=== PATIENT | male | born 2000 | race Caucasian/White ===

== ENCOUNTER 2023-07-14 16:10 | Emergency (ER) | payer BC ==
[2023-07-14] MEDS: Alum Hydro/Mag Hydro/Simeth XS 15 ML, Lidocaine 2% 5 ML PO ONE (17:29)
== END 2023-07-14 18:16 | disposition home or self-care (01) ==
LOC: MW.ED 16:10
DX: R07.0 Pain in throat (principal); Z75.8 Other problems related to medical facilities and other health care; Z79.899 Other long term (current) drug therapy
CPT/HCPCS: 87651; 99283; A9270

== ENCOUNTER 2023-12-18 02:42 | Emergency (ER) | payer OTHER, BC ==
[2023-12-18] MEDS: Morphine 4 MG/ML Syringe IVPUSH ONE (02:49)
[2023-12-18] MEDS: Lidocaine 1% 50 ML MDV INJECT ONE (03:24)
[2023-12-18] MEDS: Bacitracin Oint 28.35 GM Tube TOP STA (03:28)
[2023-12-18] MEDS: Bacitracin Oint 1 GM U/D Packet TOP ONE (03:29)
[2023-12-18] MEDS: Cephalexin 500 MG Cap PO ONE (04:03)
[2023-12-18] MEDS: Acetaminophen/HYDROcodone 325-5 MG Tab PO ONE (04:05)
== END 2023-12-18 04:10 | disposition home or self-care (01) ==
LOC: MW.ED 02:42
DX: S62.303A Unspecified fracture of third metacarpal bone, left hand, initial encounter for closed fracture (principal); S62.305A Unspecified fracture of fourth metacarpal bone, left hand, initial encounter for closed fracture; S62.307A Unspecified fracture of fifth metacarpal bone, left hand, initial encounter for closed fracture; S61.215A Laceration without foreign body of left ring finger without damage to nail, initial encounter; S61.313A Laceration without foreign body of left middle finger with damage to nail, initial encounter; S61.311A Laceration without foreign body of left index finger with damage to nail, initial encounter; Z75.8 Other problems related to medical facilities and other health care; Z79.899 Other long term (current) drug therapy; V29.99XA Rider (driver) (passenger) of other motorcycle injured in unspecified traffic accident, initial encounter
CPT/HCPCS: 12002; 73130; 96374; 99284; A9270; J2001; J2270; 99283

== ENCOUNTER 2024-07-07 19:54 | Emergency (ER) | payer BC ==
[2024-07-07] MEDS: Lidocaine 1% 5 ML VIAL INJECT STA (21:25)
== END 2024-07-07 22:30 | disposition home or self-care (01) ==
LOC: MW.ED 19:54
DX: S01.01XA Laceration without foreign body of scalp, initial encounter (principal); Z75.8 Other problems related to medical facilities and other health care; Z79.899 Other long term (current) drug therapy; W22.8XXA Striking against or struck by other objects, initial encounter; Y93.89 Activity, other specified
CPT/HCPCS: 12001; 99282; J2003; 12011; 99283

== ENCOUNTER 2024-12-19 13:36 | Emergency (ER) | payer OTHER, BC ==
[2024-12-19] MEDS: Bacitracin Oint 1 GM U/D Packet TOP ONE (14:38)
== END 2024-12-19 14:49 | disposition home or self-care (01) ==
LOC: MW.ED 13:36
DX: S61.212A Laceration without foreign body of right middle finger without damage to nail, initial encounter (principal); Z79.899 Other long term (current) drug therapy; X58.XXXA Exposure to other specified factors, initial encounter
CPT/HCPCS: 12002; 73130; 99283; A9270; J2003